=== PATIENT | female | born 1965 | race African-American/Black ===

== ENCOUNTER 2019-05-14 17:11 | Inpatient (IN) ==
[2019-05-14] MEDS ORDERED: ATIVAN PO ONE (17:16)
[2019-05-14] MEDS ORDERED: ZYPREXA ZYDIS PO ONE (17:17)
[2019-05-14 17:50] LABS: URINE SOURCE CLEAN CATCH
[2019-05-14 18:00] LABS: BILIRUBIN URINE NEGATIVE (NEGATIVE); BLOOD URINE NEGATIVE (NEGATIVE); CLARITY CLEAR (CLEAR); COLOR YELLOW; GLUCOSE URINE NEGATIVE (NEGATIVE); KETONE URINE NEGATIVE (NEGATIVE); LEUKOCYTES URINE NEGATIVE (NEGATIVE); NITRITE URINE NEGATIVE (NEGATIVE); PH URINE 6.5; PROTEIN URINE NEGATIVE (NEGATIVE); UROBILINOGEN URINE NORMAL
[2019-05-14 18:03] LABS: BE -0.6 mmoll (-2.0-2.0); BLOOD TYPE VENOUS; HCO3-(ACT) 23.9 mmoll (22-27); PCO2(98.6) 35 mmHg (40-60); PO2(98.6) 47 mmHg (30-55); SAMPLE BLOOD; SAO2 84.9 % (40.0-85.0); pH(98.6) 7.43 (7.32-7.43)
[2019-05-14 18:08] LABS: BASO# 0.02 X1000 (0.0-0.2); BASO% 0.3 % (0.0-0.8); EOS# 0.12 X1000 (0.0-0.7); EOS% 1.9 % (0.0-10.0); HEMATOCRIT 41.7 % (37.0-47.0); HEMOGLOBIN 13.7 g/dL (12.0-16.0); IMM GRAN# 0.01 X1000 (0.0-0.04); IMM GRAN% 0.2 % (0.0-0.5); LYMPH# 3.01 X1000 (1.2-3.4); LYMPH% 46.9 % (20.5-51.1); MCH 30.2 PG (27-31); MCHC 32.9 g/dL (33-37); MCV 91.9 FL (81-99); MONO# 0.72 X1000 (0.11-0.59); MONO% 11.2 % (1.7-9.3); MPV 9.9 FL (7.4-10.4); NEUT# 2.54 X1000 (1.4-6.5); NEUT% 39.5 % (42.2-75.2); PLT 283 X1000 (130-400); RBC 4.54 XMIL (4.2-5.4); RDW 13.5 % (11.5-14.5); WBC 6.42 X1000 (4.8-10.8)
[2019-05-14 18:11] LABS: UR AMPHETAMINES QUAL NONE DETECTED (NONE DETECT); UR BARBITUATES QUAL NONE DETECTED (NONE DETECT); UR BENZODIAZEPIN QUAL NONE DETECTED (NONE DETECT); UR CANNABINOIDS QUAL NONE DETECTED (NONE DETECT); UR COCAINE QUAL PRESUMPTIVE POSITIVE (NONE DETECT); UR METHADONE QUAL NONE DETECTED (NONE DETECT); UR METHAMPHETAMINE QUAL NONE DETECTED (NONE DETECT); UR OPIATES QUAL NONE DETECTED (NONE DETECT); UR OXYCODONE QUAL NONE DETECTED (NONE DETECT); UR PCP QUAL NONE DETECTED (NONE DETECT); UR PROPOXYPHENE QUAL NONE DETECTED (NONE DETECT); UR TCA QUAL NONE DETECTED (NONE DETECT)
[2019-05-14 18:30] LABS: ACETAMINOPHEN < 1.2 ug/mL (10-30); AGAP 16; ALKALINE PHOSPHATASE 120 U/L (32-104); BUN 10 mg/dL (8-22); CALCIUM 9.9 mg/dL (8.8-10.2); CHLORIDE 107 mmol/L (98-107); COSMO 284; CREATININE 0.8 mg/dL (0.5-0.9); ESTIMATED GFR > 60; GLUCOSE 97 mg/dL (70-104); GOT 79 U/L (10-30); GPT 74 U/L (10-36); POTASSIUM 3.6 mmol/L (3.5-5.1); SALICYLATES 27.95 mg/dL (3-10); SODIUM 143 mmol/L (136-145); TCO2 20 mmol/L (25-35); TOTAL PROTEIN 8.6 g/dL (6.3-8.3)
--- NOTE | 2019-05-14 18:55 | PROVIDER DOCUMENTATION ---
This chart was entered by Eduar Fall Scribe, acting as scribe for Eric Michelle MD. HPI-Psychological Disorder - General Source: patient, family, EMS - History of Present Illness-Psych Onset/Duration: reports: gradual Timing: reports: still present Severity: reports: mild Situational problems related to:: reports: N/A Psychiatric Complaints: reports: angry, confused, hostile, suicidal ideation Patient arrived by:: EMS called by spouse/family - Suicidal Ideation How did the ingestion/other suicidal act come to attention?: pt took 5 lisinop ril and handfull of asprin and took knife to throat Suicide Risk Assessment: other (pt is frightened " everyones trying to kill me") Clinician's estimation of suicide risk?: high risk <Eric Michelle - Last Filed: 05/14/19 18:55> <Andrea Wolfe - Last Filed: 05/14/19 21:25> - General Stated Complaint: psych Time Seen by Provider: 05/14/19 17:15 Allergies/Adverse Reactions: Patient Allergies Allergy/AdvReac Type Severity Reaction Status Date / Time No Known Allergies Allergy Verified 04/14/17 12:23 Home Medications: Home Medication List Medication Instructions Recorded Confirmed Last Taken Type RX: Lisinopril [Zestril] 20 mg PO DAILY #90 tab 11/11/18 05/14/19 Unknown Rx - History of Present Illness-Psych Nature of Presenting Problem: 54 yom presents to the ed v/a EMS after taking 5 Lisinopril and handful of aspirins 25 mins ago. pt stated " i wanna kill myself." pt tried to walk out of ed after being put in a room, saying " yall trying to kill me yall going to hurt me." pt stated this has been onset for awhile. pt stated to daughter in room" they are trying to kill me in here." pt stated hx of cutting herself. pt stated smoking a blut. pt is yelling and angry in room. trying to give pt medications in the room pt stated " they trying to kill me with this." pt stated " i wanna get some help." (Eric Michelle) Review of Systems - Adult - REVIEW OF SYSTEMS - ADULT Constitutional: reports: no symptoms reported Eyes: reports: no symptoms reported Ears, Nose, Mouth & Throat: reports: no symptoms reported Cardiovascular: reports: no symptoms reported Respiratory: reports: no symptoms reported Gastrointestinal: reports: no symptoms reported Genitourinary: reports: no symptoms reported Musculoskeletal: reports: no symptoms reported Integumentary: reports: no symptoms reported Neurological: reports: no symptoms reported Psychiatric: reports: no symptoms reported Endocrine: reports: no symptoms reported Hematologic/Lymphatic: reports: no symptoms reported Allergic/Immunologic: reports: no symptoms reported All Other Systems: Reviewed and Negative <Eric Michelle - Last Filed: 05/14/19 18:55> Past History - Adult - PAST MEDICAL HISTORY-ADULT Review of Records: reports: Old Records Reviewed, Nursing Assessment Review, Medications Reviewed, Social history reviewed & non-contributory. Major Childhood Illnesses: reports: denies history Cardiovascular: reports: HTN, hyperlipidemia Respiratory: reports: denies history Gastrointestinal: reports: GERD Obstetrical/Gynecological: reports: denies history Genitourinary: reports: denies history Musculoskeletal: reports: arthritis Neurological: Psychiatric: reports: anxiety, depression Endocrine/Immune: reports: Diabetes Other Conditions: reports: denies history - PRIOR SURGERIES/PROCEDURES Surgical/Procedure History: reports: BTL, , other (left ankle fracture repair) - PRIOR HOSPITALIZATIONS Prior Hospitalizations: reports: for other non-related - IMMUNIZATION STATUS Childhood Immunizations: See Nurse Assessment Flu Vaccine: See Nurse Assessment - FAMILY HISTORY Family History: reviewed, not pertinent - SOCIAL HISTORY Substance Use: marijuana <Eric Michelle - Last Filed: 05/14/19 18:55> Physical Exam-Psych Focus - Physical Exam-Psych Initial Vital Signs Reviewed: Yes Appearance: appropriate appearance, appropriate insight, neat, no apparent distress, alert, combative Neurological: alert, responds to pain, agitated Behavior/Eye Contact/Speech: good eye contact, normal speech, belligerent Thoughts/Hallucinations: no apparent hallucination Neck: full range of motion Extremity: normal range of motion, normal gait Integumentary: normal color, normal turgor, warm/dry <Eric Michelle - Last Filed: 05/14/19 18:55> Progress - PLAN OF CARE/RESULTS Result Diagrams: 05/14/19 17:35 05/14/19 17:35 - REASSESSMENT Reassessment #1 Time Reassessed: 20:11 (assumed care @ S/O. Hx of multi drug OD (SAS, Lisinopril) in suicide attempt, reportedly had knife to throat. On my exam, unresp to voice, firm touch. Pupils midpoint. Respir sonorous, but Heart RRR, BS clear, abd soft. Fluid bolus infusing for hypotension) - CONSULTS/PCP/HOSPITALIST Notification #1 *Consult/PCP/Hospitalist*: [place] Time Discussed: 21:15 Reason/Comments: no ICU here, needs [facility] General #2 Consult: Nikita Time Discussed: 21:20 Consult Disposition: Admit <Andrea Wolfe - Last Filed: 05/14/19 21:25> - PLAN OF CARE/RESULTS Progress/Plan/Lab Results: Vital Signs - 8 hr 05/14/19 17:23 05/14/19 18:16 05/14/19 18:53 Temperature 98.1 F Pulse Rate 91 H 82 98 H Respiratory Rate 16 17 20 Blood Pressure 187/112 155/101 143/96 O2 Sat by Pulse Oximetry 98 95 96 05/14/19 19:06 05/14/19 19:29 05/14/19 19:32 Temperature Pulse Rate 87 92 H 92 H Respiratory Rate 15 15 17 Blood Pressure 133/91 91/69 87/63 O2 Sat by Pulse Oximetry 96 96 96 05/14/19 20:13 05/14/19 20:31 05/14/19 21:03 Temperature Pulse Rate 86 86 81 Respiratory Rate 16 15 16 Blood Pressure 112/73 106/76 124/84 O2 Sat by Pulse Oximetry 95 94 L 95 05/14/19 21:09 Temperature Pulse Rate 78 Respiratory Rate 12 Blood Pressure 147/94 O2 Sat by Pulse Oximetry Laboratory Results - last 24 hr 05/14/19 05/14/19 05/14/19 17:35 17:35 17:35 WBC 6.42 RBC 4.54 Hgb 13.7 Hct 41.7 MCV 91.9 MCH 30.2 MCHC 32.9 L RDW Std Deviation 13.5 Plt Count 283 MPV 9.9 Immature Gran % (Auto) 0.2 Neut % (Auto) 39.5 L Lymph % (Auto) 46.9 Gulf % (Auto) 11.2 H Eos % (Auto) 1.9 Baso % (Auto) 0.3 Immature Gran # (Auto) 0.01 Neut # (Auto) 2.54 Lymph # (Auto) 3.01 Gulf # (Auto) 0.72 H Eos # (Auto) 0.12 Baso # (Auto) 0.02 Specimen Type VBG pH VBG pCO2 VBG pO2 VBG HCO3 VBG O2 Saturation VBG Base Excess Sodium 143 Potassium 3.6 Chloride 107 Carbon Dioxide 20 L Anion Gap 16 BUN 10 Creatinine 0.8 Estimated GFR/1.73 m2 > 60 BUN/Creatinine Ratio 13 Glucose 97 POC Glucose Calculated Osmolality 284 Calcium 9.9 Total Bilirubin 0.20 AST 79 H ALT 74 H Alkaline Phosphatase 120 H Total Protein 8.6 H Albumin 5.0 Globulin 4.0 Albumin/Globulin Ratio 1.0 Urine Source Urine Color Urine Clarity Urine pH Ur Specific [place] Urine Protein Urine Ketones Urine Blood Urine Nitrite Urine Bilirubin Urine Urobilinogen Urine WBC Urine Glucose Salicylates 27.95 H Urine Opiates Screen Ur Oxycodone Screen Urine Methadone Screen U Propoxyphene Qual Acetaminophen < 1.2 L Ur Barbituates Screen Ur Tricyclics Screen Ur Phencyclidine Scrn Ur Amphetamines Screen U Methamphetamines Scrn U Benzodiazepines Scrn Urine Cocaine Screen U Cannabinoids Screen Plasma/Serum Ethyl Alc 199 H 05/14/19 05/14/19 05/14/19 17:40 17:40 17:40 WBC RBC Hgb Hct MCV MCH MCHC RDW Std Deviation Plt Count MPV Immature Gran % (Auto) Neut % (Auto) Lymph % (Auto) Gulf % (Auto) Eos % (Auto) Baso % (Auto) Immature Gran # (Auto) Neut # (Auto) Lymph # (Auto) [place] # (Auto) Eos # (Auto) Baso # (Auto) Specimen Type VENOUS VBG pH 7.43 VBG pCO2 35 L VBG pO2 47 VBG HCO3 23.9 VBG O2 Saturation 84.9 VBG Base Excess -0.6 Sodium Potassium Chloride Carbon Dioxide Anion Gap BUN Creatinine Estimated GFR/1.73 m2 BUN/Creatinine Ratio Glucose POC Glucose Calculated Osmolality Calcium Total Bilirubin AST ALT Alkaline Phosphatase Total Protein Albumin Globulin Albumin/Globulin Ratio Urine Source CLEAN CATCH Urine Color YELLOW Urine Clarity CLEAR Urine pH 6.5 Ur Specific [place] 1.000 Urine Protein NEGATIVE Urine Ketones NEGATIVE Urine Blood NEGATIVE Urine Nitrite NEGATIVE Urine Bilirubin NEGATIVE Urine Urobilinogen NORMAL Urine WBC NEGATIVE Urine Glucose NEGATIVE Salicylates Urine Opiates Screen NONE DETECTED Ur Oxycodone Screen NONE DETECTED Urine Methadone Screen NONE DETECTED U Propoxyphene Qual NONE DETECTED Acetaminophen Ur Barbituates Screen NONE DETECTED Ur Tricyclics Screen NONE DETECTED Ur Phencyclidine Scrn NONE DETECTED Ur Amphetamines Screen NONE DETECTED U Methamphetamines Scrn NONE DETECTED U Benzodiazepines Scrn NONE DETECTED Urine Cocaine Screen PRESUMPTIVE POSITIVE A U Cannabinoids Screen NONE DETECTED Plasma/Serum Ethyl Alc 05/14/19 17:59 WBC RBC Hgb Hct MCV MCH MCHC RDW Std Deviation Plt Count MPV Immature Gran % (Auto) Neut % (Auto) Lymph % (Auto) [place] % (Auto) Eos % (Auto) Baso % (Auto) Immature Gran # (Auto) Neut # (Auto) Lymph # (Auto) [place] # (Auto) Eos # (Auto) Baso # (Auto) Specimen Type VBG pH VBG pCO2 VBG pO2 VBG HCO3 VBG O2 Saturation VBG Base Excess Sodium Potassium Chloride Carbon Dioxide Anion Gap BUN Creatinine Estimated GFR/1.73 m2 BUN/Creatinine Ratio Glucose POC Glucose 93 Calculated Osmolality Calcium Total Bilirubin AST ALT Alkaline Phosphatase Total Protein Albumin Globulin Albumin/Globulin Ratio Urine Source Urine Color Urine Clarity Urine pH Ur Specific [place] Urine Protein Urine Ketones Urine Blood Urine Nitrite Urine Bilirubin Urine Urobilinogen Urine WBC Urine Glucose Salicylates Urine Opiates Screen Ur Oxycodone Screen Urine Methadone Screen U Propoxyphene Qual Acetaminophen Ur Barbituates Screen Ur Tricyclics Screen Ur Phencyclidine Scrn Ur Amphetamines Screen U Methamphetamines Scrn U Benzodiazepines Scrn Urine Cocaine Screen U Cannabinoids Screen Plasma/Serum Ethyl Alc Orders Category Date Time Status Cardiac Monitoring DIRECTED Care 05/14/19 17:30 Active Finger Stick Blood Sugar (ED) DIRECTED Care 05/14/19 17:30 Active KUB ABDOMEN [RAD] Stat Exams 05/14/19 18:43 Completed ACETAMINOPHEN [TDM] Stat Lab 05/14/19 17:35 Completed ACETAMINOPHEN [TDM] Timed Lab 05/14/19 21:05 Received ALCOHOL BLOOD Stat Lab 05/14/19 17:35 Completed CBC WITH ELECTRONIC DIFF [HEME] Stat Lab 05/14/19 17:35 Completed COMPREHENSIVE METABOLIC PANEL [CHEM] Stat Lab 05/14/19 17:35 Completed COMPREHENSIVE METABOLIC PANEL [CHEM] Timed Lab 05/14/19 21:05 Received SALICYLATES [TDM] Stat Lab 05/14/19 17:35 Completed SALICYLATES [TDM] Timed Lab 05/14/19 21:[address] [URINALYSIS] Routine Lab 05/14/19 17:40 Completed URINE DRUG SCREEN PL Routine Lab 05/14/19 17:[address] BLOOD G[address] [RESP] Routine Lab 05/14/19 17:40 Completed 0.9% Sodium Chloride Inj [Ns] 1,000 ml Med 05/14/19 19:30 Discontinued .ROUTE As directed 0.9% Sodium Chloride Inj [Ns] 1,000 ml Med 05/14/19 19:32 Discontinued IV 999 mls/hr Lorazepam [Ativan] Med 05/14/19 17:16 Discontinued 2 mg PO NOW ONE Olanzapine Rapdis [Zyprexa Zydis] Med 05/14/19 17:17 Discontinued 5 mg PO NOW ONE Overdose (suspected) Stat Oth 05/14/19 17:30 Ordered EKG [EKG] Stat Ther 05/14/19 17:30 Ordered Departure - Departure Date of Disposition Decision: 05/14/19 Certified Medical Emergency: Emergent - Critical Care Note This patient required my direct & personal management of CC.: No <Eric Michelle - Last Filed: 05/14/19 18:55> - Departure Time of Disposition Decision: 20:38 - Critical Care Note This patient required my direct & personal management of CC.: No <Andrea Wolfe - Last Filed: 05/14/19 21:25> - Departure DIAGNOSIS: Overdose of antihypertensive agent, Aspirin overdose, Suicide attempt, Cocaine abuse, Alcohol intoxication Disposition: ADMITTED INPATIENT 09 Condition: Stable Referrals and Follow-Ups: None,PCP [Primary Care Provider] - Discharge Education: Steps to Quit Smoking, [id number] Attestation - Physician/ OTTO Attestation Patient care was provided by Advanced Practice Provider:: No The physician spent face to face time with patient:: Yes Advanced Practice Provider documentation review:: Supervising physician onsite and consulted in the evaluation and care of this patient. The physician did have a face to face encounter with the patient. <Eric Michelle - Last Filed: 05/14/19 18:55> - Physician/ OTTO Attestation Patient care was provided by Advanced Practice Provider:: No The physician spent face to face time with patient:: Yes Advanced Practice Provider documentation review:: Supervising physician onsite and consulted in the evaluation and care of this patient. The physician did have a face to face encounter with the patient. <Andrea Wolfe. - Last Filed: 05/14/19 21:25> This chart was documented by the indicated scribe, (Eduar Fall, Scribe) and accurately reflects the services I performed and decisions made by me, Eric Michelle MD, as attested by the provider's signature.
--- NOTE | 2019-05-14 19:08 | Diag Imaging Result Doc PS360 ---
EXAM: KUB ABDOMEN HISTORY: ingestion TECHNIQUE: Single view COMPARISON: None. FINDINGS: No bowel obstruction. No organomegaly. No foreign body. There are multiple pelvic phleboliths. IMPRESSION: Negative exam Electronically signed by Elbert Martinez 05/14/2019 7:05 PM
[2019-05-14] MEDS ORDERED: NS 1,000 ML ONE (19:30)
[2019-05-14] MEDS ORDERED: NS 1,000 ML IV ONE (19:32)
[2019-05-14 22:05] LABS: ACETAMINOPHEN < 1.2 ug/mL (10-30); AGAP 14; ALBUMIN 4.1 g/dL (3.5-5.0); ALKALINE PHOSPHATASE 102 U/L (32-104); BUN 10 mg/dL (8-22); CALCIUM 8.8 mg/dL (8.8-10.2); CHLORIDE 112 mmol/L (98-107); COSMO 291; CREATININE 0.8 mg/dL (0.5-0.9); ESTIMATED GFR > 60; GLUCOSE 85 mg/dL (70-104); GOT 61 U/L (10-30); GPT 56 U/L (10-36); POTASSIUM 3.6 mmol/L (3.5-5.1); SALICYLATES 25.22 mg/dL (3-10); SODIUM 147 mmol/L (136-145); TCO2 21 mmol/L (25-35); TOTAL BILIRUBIN < 0.15 mg/dL (0.20-1.00)
[2019-05-14] MEDS ORDERED: ZOFRAN IV PRN (23:48)
[2019-05-14] MEDS ORDERED: HALDOL IM PRN (23:51)
[2019-05-15] MEDS: NS 1,000 ML IV SCH ×2 (00:14→08:53)
[2019-05-15] MEDS: PRILOSEC PO SCH (06:05)
--- NOTE | 2019-05-15 06:05 | HISTORY AND PHYSICAL ---
CHIEF COMPLAINT: Overdose. HISTORY OF PRESENT ILLNESS: Ms. Burton is a 54-year-old female who stated that she was feeling stressed so she wanted to take her own life. She reports taking 5 lisinopril 20 mg, a handful of aspirin. Apparently also held a knife to her throat at some point. She did state that she wanted to . She has a history of killing herself. Believe she also tested positive on the toxicology screen for cocaine and alcohol. At any rate, she will be admitted to the ICU for monitoring of her salicylate level and a [facility] consultation. PAST MEDICAL HISTORY: Questionable diabetes which is untreated, bipolar disorder and hypertension. PREVIOUS SURGICAL HISTORY: . SOCIAL HISTORY: Smokes a pack of cigarettes per day. Stated she did not use drugs. However, when I said there was cocaine in her system she said that she did use that occasionally. Uses alcohol occasionally. FAMILY HISTORY: Mother had diabetes mellitus. ALLERGIES: No known drug allergies. HOME MEDICATIONS: Lisinopril 20 mg p.o. daily. REVIEW OF SYSTEMS: Fourteen-point review of systems conducted with the patient. Pertinent positives listed above in the HPI. All other systems reviewed and found to be negative. PHYSICAL EXAMINATION: VITAL SIGNS: Temperature 99, pulse 75, respirations 13, blood pressure 126/92, oxygen saturation 97% on room air. GENERAL: A 54-year-old female lying in the ER bed, alert and oriented times 3, answers all questions appropriately. HEENT: Head is atraumatic, normocephalic. Pupils equal, round, reactive to light. Extraocular eye movements intact. Sclera is anicteric. Conjunctiva is pink. Oral mucosa is moist. NECK: Supple. No JVD. No thyromegaly. Trachea is midline. No cervical lymphadenopathy. CARDIAC: S1, S2 appreciated. No murmurs, gallops, rubs. LUNGS: Clear to auscultation bilaterally. No rhonchi, wheezes, rales. Symmetric rise and fall with respirations. ABDOMEN: Soft, nondistended, nontender. Bowel sounds present all 4 quadrants, normoactive. No pulsatile mass. No organomegaly. EXTREMITIES: No clubbing, cyanosis or edema. Two-plus pedal pulses bilaterally. GENITOURINARY: No bladder distention. Patient voids. Otherwise deferred. NEUROLOGICAL: Alert and oriented times 3. No focal motor deficits. Otherwise nonfocal examination. LABORATORY DATA: CBC within normal limits. Chemistry panel had carbon dioxide of 20, otherwise within normal limits. AST 79. ALT 74. Alkaline phosphate 120. Urine unremarkable. Salicylate was 27.95, on recheck it was 25.22, and then she was presumptively positive for cocaine. Serum alcohol was 199. Abdominal x-ray showed no bowel obstruction, no organomegaly, no foreign bodies. ASSESSMENT: 1. Overdose. 2. Suicidal ideation. 3. History of bipolar. 4. Hypertension. PLAN: Place patient in the ICU. Monitor her salicylate level every 2 hours as recommended by Poison Control. Check hemoglobin A1c as she does state that she has a history of diabetes. However, she does not take any medications and her blood sugars are not elevated. Recheck laboratory data. Check TSH. Give Haldol p.r.n. for agitation. Normal saline at 100 mL an hour. Consult [facility]. We will monitor patient's blood pressure and she will be one-on-one care in the ICU. Further recommendations per patient clinical course. Dictated by TARA Arroyo for Cisco Shelton MD I have performed a face to face diagnostic evaluation. Labs/ Xrays- reviewed. Exam- Chest- clear, CV- regular. Psych- suicidal, depressed. A/P- Drug OD, Depression, Suicidal ideation- Admit- supportive care, Psychiatry consult. Dr. Nikita Sadler#: [phone] cc: TARA Arroyo MD [facility]
[2019-05-15 06:30] LABS: BASO# 0.01 X1000 (0.0-0.2); BASO% 0.2 % (0.0-0.8); EOS# 0.16 X1000 (0.0-0.7); EOS% 2.9 % (0.0-10.0); HEMATOCRIT 37.7 % (37.0-47.0); HEMOGLOBIN 12.1 g/dL (12.0-16.0); LYMPH# 2.32 X1000 (1.2-3.4); LYMPH% 42.5 % (20.5-51.1); MCH 30.2 PG (27-31); MCHC 32.1 g/dL (33-37); MONO# 0.65 X1000 (0.11-0.59); MONO% 11.9 % (1.7-9.3); MPV 10.3 FL (7.4-10.4); NEUT# 2.32 X1000 (1.4-6.5); NEUT% 42.5 % (42.2-75.2); PLT 249 X1000 (130-400); RBC 4.01 XMIL (4.2-5.4); RDW 13.5 % (11.5-14.5); WBC 5.46 X1000 (4.8-10.8)
--- NOTE | 2019-05-15 06:52 | EKG Report ---
Test Performed on : 05/15/2019 06:46:59 AM Test Reason : chest pain Blood Pressure : / mmHG Vent. Rate : 063 BPM Atrial Rate : 063 BPM P-R Int : 190 ms QRS Dur : 078 ms QT Int : 452 ms P-R-T Axes : 048 029 038 degrees QTc Int : 462 ms Normal sinus rhythm. Possible Left atrial enlargement Borderline ECG No previous ECGs available Unconfirmed Result
[2019-05-15 07:00] LABS: HEMOGLOBIN A1C 5.4 % (4.8-6.0)
[2019-05-15 07:08] LABS: AGAP 19; BUN 12 mg/dL (8-22); CALCIUM 7.8 mg/dL (8.8-10.2); CHLORIDE 109 mmol/L (98-107); COSMO 284; CREATININE 0.7 mg/dL (0.5-0.9); ESTIMATED GFR > 60; GLUCOSE 57 mg/dL (70-104); POTASSIUM 3.8 mmol/L (3.5-5.1); SODIUM 144 mmol/L (136-145); TCO2 16 mmol/L (25-35)
--- NOTE | 2019-05-15 07:49 | EKG Report ---
Test Performed on : 05/14/2019 7:01:12 PM Test Reason : overdose Blood Pressure : / mmHG Vent. Rate : 086 BPM Atrial Rate : 086 BPM P-R Int : 174 ms QRS Dur : 072 ms QT Int : 384 ms P-R-T Axes : 052 017 043 degrees QTc Int : 459 ms Normal sinus rhythm. Possible Left atrial enlargement Nonspecific T wave abnormality Abnormal ECG No previous ECGs available Confirmed by Eric Michelle MD ([id number]) on 05/18/2019 1:58:43 AM
[2019-05-15 12:09] LABS: ALLEN TEST YES; BE -8.9 mmoll (-3.0-3.0); BLOOD TYPE ARTERIAL; HCO3-(ACT) 17.9 mmoll (20.0-26.0); METHB 0.7 % (0.0-1.5); MODALITY ROOM AIR; O2(CT) 16.4 mL/dL (15.0-23.0); O2HB 94.6 % (95.0-99.0); PCO2(98.6) 29 mmHg (35-45); PO2(98.6) 83 mmHg (60-100); SAMPLE BLOOD; SAO2 98.1 % (95.0-100.0); THB 12.3 g/dL (11.5-17.4); pH(98.6) 7.34 (7.35-7.45)
[2019-05-15] MEDS: D5 1/2 NS 1,000 ML IV SCH ×2 (12:37→22:16)
[2019-05-15] MEDS ORDERED: SODIUM BICARBONATE 8.4% IV ONE (12:49)
[2019-05-15 12:51] LABS: ESTIMATED GFR > 60
[2019-05-15 12:53] LABS: AGAP 20; ALB/GLOB RATIO 1.5; ALBUMIN 3.9 g/dL (3.5-5.0); ALKALINE PHOSPHATASE 99 U/L (32-104); BUN 13 mg/dL (8-22); CALCIUM 8.7 mg/dL (8.8-10.2); CHLORIDE 108 mmol/L (98-107); COSMO 283; CREATININE 0.7 mg/dL (0.5-0.9); GLUCOSE 61 mg/dL (70-104); GOT 55 U/L (10-30); GPT 51 U/L (10-36); PHOSPHORUS 2.7 mg/dL (2.7-4.5); POTASSIUM 3.7 mmol/L (3.5-5.1); SODIUM 143 mmol/L (136-145); TCO2 15 mmol/L (25-35); TOTAL BILIRUBIN 0.32 mg/dL (0.20-1.00); TOTAL PROTEIN 6.5 g/dL (6.3-8.3)
--- NOTE | 2019-05-15 13:29 | PROGRESS NOTE ---
DATE: 05/15/2019 SUBJECTIVE: The patient seems to be a little bit better. The aspirin level has been going down. I will ask for a new level at this moment. Also, I will ask for a new CMP, magnesium and phosphorus. I did some ABGs that showed that the patient is a little bit acidotic with a pH of 7.34 and bicarb level is 17.9. I will give her a dose of bicarbonate, and I will wait for the next results. Depending on those results, I will continue doing the salicylate level scheduled frequently, or it can be maybe every 6 to 8 hours. I will also start this patient on D5 half NS instead of normal saline since her chloride level is high, and also her glucose level is a little bit low at 57. She is answering all of my questions, but her answers are slow. She is following commands. She is sleepy. OBJECTIVE: Vital Signs: Temperature 98.4 degrees, pulse 77, respiratory rate 16, blood pressure 163/94, oxygen saturation 96 on room air. HEENT: Head normocephalic. No trauma. PERRLA. Neck: Supple. No JVD. No masses. Central trachea. Chest: Clear to auscultation. No wheezing. No rales. Abdomen: Soft. Mild generalized tenderness to palpation, mostly at the level of the epigastric area. Extremities: No edema, no clubbing, no cyanosis. Neurological: This patient is sleepy, but arousable. She is oriented x3. She does not have any focal deficits. She seems to be weak. LABORATORY DATA: WBC 5.4, hemoglobin 12.1, hematocrit 37.7, platelets 249,000. Sodium 143, potassium 3.7, chloride 108, bicarbonate 15, BUN 13, creatinine 0.7, glucose 61, calcium 8.7. Total bilirubin 0.3, AST 55, ALT 51, alkaline phosphatase 899. Magnesium is 2, and phosphorus is 2.7. ASSESSMENT AND PLAN: 1. Overdose, apparently with lisinopril and aspirin. Pending new salicylate level. The last one was around 19.8, but at the beginning upon admission, it was 27.9. She is still slightly acidotic. I will give her a dose of bicarbonate, and I will monitor this patient closely. Also, I will stop the normal saline, and put her on D5 half normal saline since her chloride level is high and her blood sugar is low. Apparently, the patient mentioned that she has diabetes, but her hemoglobin A1c is 5.4, and I do not have any medications listed on her home medications. 2. Suicidal ideation. Aware. Once this patient is medically stable, I will contact [facility] for possible admission. 3. History of bipolar disorder. Aware. 4. Hypertension, stable. Continue with the same management for now. cc: MD Cisco Rodríguez MD
[2019-05-15 19:35] LABS: AGAP 15; ALB/GLOB RATIO 1.5; ALBUMIN 3.7 g/dL (3.5-5.0); ALKALINE PHOSPHATASE 96 U/L (32-104); BUN 10 mg/dL (8-22); CALCIUM 8.9 mg/dL (8.8-10.2); CHLORIDE 100 mmol/L (98-107); COSMO 276; CREATININE 0.8 mg/dL (0.5-0.9); ESTIMATED GFR > 60; GLUCOSE 221 mg/dL (70-104); GOT 45 U/L (10-30); GPT 46 U/L (10-36); POTASSIUM 3.3 mmol/L (3.5-5.1); SALICYLATES 11.22 mg/dL (3-10); SODIUM 135 mmol/L (136-145); TCO2 20 mmol/L (25-35); TOTAL BILIRUBIN 0.31 mg/dL (0.20-1.00); TOTAL PROTEIN 6.2 g/dL (6.3-8.3)
[2019-05-16 01:27] LABS: AGAP 11; ALB/GLOB RATIO 1.4; ALBUMIN 3.8 g/dL (3.5-5.0); ALKALINE PHOSPHATASE 96 U/L (32-104); BUN 7 mg/dL (8-22); CALCIUM 8.8 mg/dL (8.8-10.2); CHLORIDE 102 mmol/L (98-107); COSMO 272; CREATININE 0.7 mg/dL (0.5-0.9); ESTIMATED GFR > 60; GLUCOSE 104 mg/dL (70-104); GOT 40 U/L (10-30); GPT 43 U/L (10-36); POTASSIUM 3.4 mmol/L (3.5-5.1); SALICYLATES 6.36 mg/dL (3-10); SODIUM 137 mmol/L (136-145); TCO2 24 mmol/L (25-35); TOTAL BILIRUBIN 0.44 mg/dL (0.20-1.00); TOTAL PROTEIN 6.6 g/dL (6.3-8.3)
[2019-05-16] MEDS: PRILOSEC PO SCH (06:27)
[2019-05-16 06:44] LABS: BASO# 0.02 X1000 (0.0-0.2); BASO% 0.5 % (0.0-0.8); EOS% 2.4 % (0.0-10.0); HEMATOCRIT 37.6 % (37.0-47.0); HEMOGLOBIN 12.4 g/dL (12.0-16.0); LYMPH# 2.06 X1000 (1.2-3.4); LYMPH% 49.3 % (20.5-51.1); MCH 30.7 PG (27-31); MCV 93.1 FL (81-99); MONO# 0.78 X1000 (0.11-0.59); MONO% 18.7 % (1.7-9.3); MPV 10.5 FL (7.4-10.4); NEUT# 1.22 X1000 (1.4-6.5); NEUT% 29.1 % (42.2-75.2); PLT 244 X1000 (130-400); RBC 4.04 XMIL (4.2-5.4); RDW 13.2 % (11.5-14.5); WBC 4.18 X1000 (4.8-10.8)
[2019-05-16 07:13] LABS: AGAP 16; ALB/GLOB RATIO 1.2; ALBUMIN 3.6 g/dL (3.5-5.0); ALKALINE PHOSPHATASE 93 U/L (32-104); BUN 6 mg/dL (8-22); CALCIUM 8.9 mg/dL (8.8-10.2); CHLORIDE 103 mmol/L (98-107); COSMO 279; CREATININE 0.7 mg/dL (0.5-0.9); ESTIMATED GFR > 60; GLUCOSE 106 mg/dL (70-104); GOT 40 U/L (10-30); GPT 40 U/L (10-36); POTASSIUM 3.4 mmol/L (3.5-5.1); SALICYLATES 4.77 mg/dL (3-10); SODIUM 141 mmol/L (136-145); TCO2 22 mmol/L (25-35); TOTAL PROTEIN 6.5 g/dL (6.3-8.3)
[2019-05-16] MEDS ORDERED: KLOR-CON PO ONE (07:39)
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
[2019-05-16] MEDS: PRINIVIL PO SCH (08:41)
[2019-05-17] MEDS: PRILOSEC PO SCH (06:10)
[2019-05-17 07:04] LABS: AGAP 11; ALB/GLOB RATIO 1.4; ALBUMIN 3.9 g/dL (3.5-5.0); ALKALINE PHOSPHATASE 92 U/L (32-104); BUN 7 mg/dL (8-22); CALCIUM 9.3 mg/dL (8.8-10.2); CHLORIDE 102 mmol/L (98-107); COSMO 276; CREATININE 0.8 mg/dL (0.5-0.9); ESTIMATED GFR > 60; GLUCOSE 105 mg/dL (70-104); GOT 39 U/L (10-30); GPT 37 U/L (10-36); POTASSIUM 3.8 mmol/L (3.5-5.1); SODIUM 139 mmol/L (136-145); TCO2 26 mmol/L (25-35); TOTAL BILIRUBIN 0.36 mg/dL (0.20-1.00); TOTAL PROTEIN 6.7 g/dL (6.3-8.3)
[2019-05-17] MEDS: PRINIVIL PO SCH (10:15)
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
--- NOTE | 2019-05-17 19:20 | PROGRESS NOTE ---
DATE: 05/17/2019 SUBJECTIVE: I have been asked to evaluate Ms. Burton by a colleague of [facility] (Dr. Owusu). Apparently, Ms. Burton has been admitted in the hospital for the past 3 days, initially because of suicidal attempt with drug overdose. Has been evaluated by Psych and has been recommended to be admitted an inpatient. Unfortunately, she is not candidate for [facility]. Ms. Burton, however, does not want to go to any other place except [facility]. When I came to evaluate her, she refers to be doing for the most part okay. Denies any suicidal ideation. OBJECTIVE: Vital signs: Her vitals are stable with a blood pressure 153/95, pulse of 74, respirations 17, temperature 98.7 degrees. Physical exam for the most part is unremarkable. Psych: She seems to be quite cooperative. She has congruent affect. Does not seem to have any hallucinations or delusional thoughts. She denied to me any suicidal ideation at this point. ASSESSMENT: 1. Suicidal attempt with drug overdose. The patient has been recommended by Jovanni to be admitted in an inpatient psychiatric facility. 2. History of bipolar disorder. 3. Tobacco use and abuse. 4. Urine toxicology positive for cocaine. I think Ms Burton will need to be kept in the hospital for her personal safety and for safety of other people who live around her. She has been evaluated by Psych. The recommendation is to keep her in hospital. Medical standpoint, I think she is doing okay, but from mental standpoint, I think she still needs more care. I agree with Dr. Owusu in keeping Ms. Burton in the hospital. cc: MD Cisco Bassett MD
[2019-05-17] MEDS ORDERED: ULTRAM PO ONE (22:14)
[2019-05-17] MEDS ORDERED: APRESOLINE IV ONE (22:15)
[2019-05-18] MEDS: PRILOSEC PO SCH (09:27)
[2019-05-18] MEDS: NORVASC PO SCH ×3 (09:27→21:22)
[2019-05-18] MEDS: PRINIVIL PO SCH (09:27)
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
[2019-05-18] MEDS: NICODERM PATCH TD PRN (23:18)
[2019-05-19] MEDS: PRILOSEC PO SCH (06:44)
[2019-05-19 07:23] LABS: AGAP 13; ALB/GLOB RATIO 1.3; ALBUMIN 3.9 g/dL (3.5-5.0); ALKALINE PHOSPHATASE 92 U/L (32-104); BUN 15 mg/dL (8-22); CALCIUM 9.3 mg/dL (8.8-10.2); CHLORIDE 100 mmol/L (98-107); COSMO 276; CREATININE 0.7 mg/dL (0.5-0.9); ESTIMATED GFR > 60; GLUCOSE 95 mg/dL (70-104); GOT 31 U/L (10-30); GPT 31 U/L (10-36); POTASSIUM 3.3 mmol/L (3.5-5.1); SODIUM 138 mmol/L (136-145); TCO2 25 mmol/L (25-35); TOTAL BILIRUBIN 0.35 mg/dL (0.20-1.00); TOTAL PROTEIN 6.9 g/dL (6.3-8.3)
[2019-05-19] MEDS: NORVASC PO SCH ×2 (10:35→20:58)
[2019-05-19] MEDS: PRINIVIL PO SCH (10:35)
[2019-05-19] MEDS ORDERED: KLOR-CON PO ONE (14:15)
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
--- NOTE | 2019-05-19 15:39 | PROGRESS NOTE ---
DATE: 05/19/2019 I just communicated with [facility]. I tried to talk to the on-call doctor, I believe it is Dr. Rutherford, but he is in a meeting right now. I talked to the clinical supervisor production, Mrs. Smith. I explained to her the whole situation with this patient. She will ask the on-call doctor to call me, and I gave her my phone number. She states that they do not have a bed at this time. cc: MD Cisco Rodríguez MD
[2019-05-19] MEDS: NICODERM PATCH TD PRN (20:58)
[2019-05-20] MEDS: PRILOSEC PO SCH (06:17)
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
[2019-05-20] MEDS: PRINIVIL PO SCH (10:30)
[2019-05-20] MEDS: NORVASC PO SCH ×2 (10:30→20:57)
[2019-05-20] MEDS: TYLENOL PO PRN (22:00)
[2019-05-20] MEDS: NICODERM PATCH TD PRN (22:00)
[2019-05-21] MEDS: PRILOSEC PO SCH (06:48)
[2019-05-21] MEDS: NORVASC PO SCH ×2 (08:55→23:30)
[2019-05-21] MEDS: PRINIVIL PO SCH (08:55)
[2019-05-21] MEDS: MIRALAX PO SCH ×2 (09:31→23:42)
[2019-05-21] MEDS ORDERED: BLISTEX MEDICATED BERRY LIP BALM TOP PRN (13:45)
[2019-05-21 14:06] LABS: URINE SOURCE CLEAN CATCH
[2019-05-21 14:11] LABS: BILIRUBIN URINE NEGATIVE (NEGATIVE); BLOOD URINE NEGATIVE (NEGATIVE); COLOR YELLOW; GLUCOSE URINE NEGATIVE (NEGATIVE); KETONE URINE NEGATIVE (NEGATIVE); LEUKOCYTES URINE NEGATIVE (NEGATIVE); NITRITE URINE NEGATIVE (NEGATIVE); PROTEIN URINE NEGATIVE (NEGATIVE); SP GRAVITY URINE 1.012; TURBIDITY URINE CLEAR (CLEAR); UROBILINOGEN URINE NORMAL (NORMAL)
[2019-05-21 14:12] LABS: UR EPITHELIAL CELLS <10 /HPF (<10); URINE BACTERIA NEGATIVE /HPF; URINE RBC <10 /HPF (<10); URINE WBC <10 /HPF (<10)
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
[2019-05-22] MEDS: PRILOSEC PO SCH (06:37)
[2019-05-22] MEDS: PRINIVIL PO SCH (09:27)
[2019-05-22] MEDS: NORVASC PO SCH ×2 (09:27→20:29)
[2019-05-22] MEDS: MIRALAX PO SCH ×2 (09:28→20:31)
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
[2019-05-22] MEDS: TYLENOL PO PRN (20:29)
[2019-05-23] MEDS: PRILOSEC PO SCH (06:24)
[2019-05-23] MEDS: NORVASC PO SCH (09:09)
[2019-05-23] MEDS: TYLENOL PO PRN (09:10)
[2019-05-23] MEDS: PRINIVIL PO SCH (09:10)
[2019-05-23] MEDS: MIRALAX PO SCH (09:10)
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
[2019-05-23 19:08] VITALS: BP 135/82
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
== END 2019-05-23 19:51 | DRG 918 ==
LOC: ICU 17:11 → P.ED 17:11 → SUATTDRO 22:10 → OBSVTOIN 22:10 → 4N 05-16 10:12
PROVIDERS: ATTEND Internal Medicine